=== PATIENT | male | born 1960 | race African-American/Black ===

== ENCOUNTER → 2016-07-30 | Outpatient (CLI) | payer BC ==
[2016-07-30 08:47] LABS: PROSTRATE SPECIFIC AG TOTAL 0.56 ng/mL (0.0-4.0)
[2016-07-30 08:49] LABS: FOLIC ACID (FOLATE) SERUM 19.4 ng/mL (>5.38)
[2016-07-30 08:51] LABS: BASOPHILS % 1.2 % (0.0-2.0); DIFFERENTIAL COMMENT 0; EOSINOPHILS % 14.7 % (0.0-5.0); HEMOGLOBIN. 14.2 g/dL (14.0-18.0); LYMPHOCYTES % 35.4 % (20.0-50.0); MEAN CORPUSCULAR HEMOGLOBIN 23.2 pg (28.0-32.0); MEAN CORPUSCULAR HGB CONC 31.5 g/dL (31.0-37.0); MEAN CORPUSCULAR VOLUME 73.6 fL (80.0-94.0); MEAN PLATELET VOLUME 8.9 fl (7.4-10.4); MONOCYTES % 7.6 % (2.0-8.0); NEUTROPHILS % 41.1 % (40.0-76.0); PLATELET 282 x1000/uL (130-400); RED BLOOD CELL COUNT 6.11 mill/uL (4.7-6.1); RED CELL DISTRIBUTION WIDTH 14.7 % (11.6-14.6); WHITE BLOOD COUNT 6.9 x1000/uL (4.5-11.0)
== END | disposition home or self-care (01) ==
LOC: LAB 07:35
PROVIDERS: ATTEND Internal Medicine Geriatric Medicine
DX: Z00.00 Encounter for general adult medical examination without abnormal findings (principal)
CPT/HCPCS: 36415; 82306; 82607; 82728; 82746; 83036; 83540; 83550; 84153; 84443; 85025; 86592

== ENCOUNTER → 2016-08-22 | Outpatient (CLI) | payer BC ==
[~2016-08-22] MED LIST: REGADENOSON 0.4 MG/5 ML IV ONE
== END | disposition home or self-care (01) ==
LOC: NM 08:29
PROVIDERS: ATTEND Internal Medicine Geriatric Medicine
DX: R06.09 Other forms of dyspnea (principal)
CPT/HCPCS: 78452; 93017; A9500; J2785

== ENCOUNTER → 2018-05-21 | Outpatient (CLI) | payer BC ==
[2018-05-21 07:56] LABS: BASOPHILS % 1.3 % (0.0-2.0); CLARITY URINE CLEAR (CLEAR); COLOR URINE YELLOW (YELLOW); EOSINOPHILS % 4.8 % (0.0-5.0); HEMATOCRIT. 43.6 % (42.0-52.0); HEMOGLOBIN. 13.7 g/dL (14.0-18.0); KETONES URINE TRACE (NEGATIVE); LEUKOCYTE ESTERASE URINE NEGATIVE (NEGATIVE); LYMPHOCYTES % 33.2 % (20.0-50.0); MEAN CORPUSCULAR VOLUME 73.4 fL (80.0-94.0); MEAN PLATELET VOLUME 8.2 fl (7.4-10.4); MONOCYTES % 8.8 % (2.0-8.0); NEUTROPHILS % 51.9 % (40.0-76.0); NITRITE URINE NEGATIVE (NEGATIVE); OCCULT BLOOD URINE NEGATIVE (NEGATIVE); PLATELET 395 x1000/uL (130-400); PROTEIN URINE NEGATIVE (NEGATIVE); RED BLOOD CELL COUNT 5.94 mill/uL (4.7-6.1); RED CELL DISTRIBUTION WIDTH 14.1 % (11.6-14.6); SPECIFIC GRAVITY URINE 1.027 (1.005-1.030)
[2018-05-21 08:13] LABS: CHLORIDE 107 mEq/L (98-107)
[2018-05-21 08:25] LABS: LDL CHOLESTEROL 106 mg/dL (5-100)
[2018-05-21 08:27] LABS: HDL CHOLESTEROL 30 mg/dL (40-59); TOTAL IRON BINDING CAPACITY 323 ug/dL (250-450)
[2018-05-21 08:34] LABS: FOLIC ACID (FOLATE) SERUM 10.9 ng/mL (>5.38)
[2018-05-21 12:42] LABS: PROSTRATE SPECIFIC AG TOTAL 0.85 ng/mL (0.0-4.0)
== END | disposition home or self-care (01) ==
LOC: LAB 07:22
PROVIDERS: ATTEND Internal Medicine Geriatric Medicine
DX: Z12.5 Encounter for screening for malignant neoplasm of prostate (principal); E78.5 Hyperlipidemia, unspecified; N39.0 Urinary tract infection, site not specified; R03.0 Elevated blood-pressure reading, without diagnosis of hypertension; R73.09 Other abnormal glucose
CPT/HCPCS: 36415; 80061; 82306; 82607; 82728; 82746; 83036; 83540; 83550; 84153; 84443; 86592; G0103

== ENCOUNTER 2019-09-06 08:42 | Inpatient (IN) | payer BC, OTHER ==
[~2019-09-06] VITALS: Ht 172.7 cm; Wt 90.7 kg
[2019-09-06] MEDS ORDERED: ACETAMINOPHEN 325MG TABLET PO PRN ×2 (09:15→09:45)
[2019-09-06] MEDS ORDERED: ALBUTEROL 6.7GM HFA INHALER ORI PRN (09:45)
[2019-09-06] MEDS ORDERED: ZINC SULFATE 220 MG ( 50 ) CAPSULE PO ONE (09:45)
[2019-09-06] MEDS ORDERED: MAGNESIUM/ALUMINUM HYDROXIDE/SIMETHICONE 30ML UDC PO PRN (09:45)
[2019-09-06] MEDS ORDERED: CLONIDINE 0.1MG TABLET PO PRN (09:45)
[2019-09-06] MEDS ORDERED: ONDANSETRON HCL 4MG/2ML INJ IV PRN (09:45)
[2019-09-06 10:35] LABS: BASOPHILS % 0.5 % (0.0-2.0); EOSINOPHILS % 5.2 % (0.0-5.0); HEMATOCRIT. 45.4 % (42.0-52.0); HEMOGLOBIN. 14.3 g/dL (14.0-18.0); LYMPHOCYTES % 28.9 % (20.0-50.0); MEAN CORPUSCULAR HEMOGLOBIN 23.3 pg (28.0-32.0); MEAN CORPUSCULAR VOLUME 74.1 fL (80.0-94.0); MEAN PLATELET VOLUME 8.9 fl (7.4-10.4); MONOCYTES % 10.1 % (2.0-8.0); NEUTROPHILS % 55.3 % (40.0-76.0); PLATELET 275 x1000/uL (130-400); RED BLOOD CELL COUNT 6.12 mill/uL (4.7-6.1); RED CELL DISTRIBUTION WIDTH 14.9 % (11.6-14.6)
[2019-09-06 10:38] LABS: PROTHROMBIN TIME 10.4 sec (9.6-11.0)
[2019-09-06 10:39] LABS: CHLORIDE 109 mEq/L (98-107)
[2019-09-06] MEDS ORDERED: AZITHROMYCIN 250 MG in DEXT 5% WATER 250 ML IV SCH (11:15)
[2019-09-06 12:00] VITALS: BP 147/94
[2019-09-06] MEDS ORDERED: LOSARTAN POTASSIUM 25 MG TABLET PO NR (12:31)
[2019-09-06] MEDS ORDERED: AZITHROMYCIN 500 MG in DEXT 5% WATER 250 ML IV NR (13:00)
[2019-09-06 13:08] VITALS: BP 147/94
[2019-09-06] MEDS: ASPIRIN 81MG EC TABLET PO SCH (14:07)
[2019-09-06] MEDS: THIAMINE HCL 100MG TABLET PO SCH (14:08)
[2019-09-06] MEDS: ASCORBIC ACID 500 MG TABLET PO SCH ×3 (14:08→20:15)
[2019-09-06] MEDS: ZINC SULFATE 220 MG ( 50 ) CAPSULE PO SCH (14:08)
[2019-09-06] MEDS: ENOXAPARIN 40MG/0.4ML SYR SUBCUT SCH (14:09)
[2019-09-06 16:00] VITALS: BP 133/74
[2019-09-06] MEDS ORDERED: MONTELUKAST SODIUM 10MG TABLET PO SCH (17:00)
[2019-09-06] MEDS ORDERED: BUDE6HFA INH (17:39)
[2019-09-06] MEDS ORDERED: AZITHROMYCIN 500 MG TABLET PO NR (17:41)
[2019-09-06 20:00] VITALS: BP 104/75
[2019-09-06] MEDS: GUAIFENESIN 600MG ER TABLET PO SCH ×2 (20:11→20:14)
[2019-09-06] MEDS: FAMOTIDINE 20MG TABLET PO SCH ×2 (20:11→20:15)
[2019-09-06] MEDS ORDERED: ZOLPIDEM TARTRATE 5MG TABLET PO PRN (21:00)
[2019-09-07 05:42] LABS: CHLORIDE 107 mEq/L (98-107)
[2019-09-07 05:56] LABS: CREATINE KINASE MB FRACTION < 1.0 ng/mL (0.5-3.6)
[2019-09-07 06:10] LABS: BASOPHILS % 1.1 % (0.0-2.0); EOSINOPHILS % 13.4 % (0.0-5.0); HEMATOCRIT. 44.4 % (42.0-52.0); LYMPHOCYTES % 45.6 % (20.0-50.0); MEAN CORPUSCULAR HEMOGLOBIN 23.5 pg (28.0-32.0); MEAN CORPUSCULAR VOLUME 74.2 fL (80.0-94.0); MEAN PLATELET VOLUME 8.7 fl (7.4-10.4); MONOCYTES % 8.7 % (2.0-8.0); NEUTROPHILS % 31.2 % (40.0-76.0); PLATELET 245 x1000/uL (130-400); RED BLOOD CELL COUNT 5.98 mill/uL (4.7-6.1); RED CELL DISTRIBUTION WIDTH 14.7 % (11.6-14.6)
[2019-09-07] MEDS: ENOXAPARIN 40MG/0.4ML SYR SUBCUT SCH ×2 (08:28→09:00)
[2019-09-07] MEDS: THIAMINE HCL 100MG TABLET PO SCH (08:30)
[2019-09-07] MEDS: DOCUSATE SODIUM 250MG CAPSULE PO SCH ×2 (08:30→09:00)
[2019-09-07] MEDS: ASPIRIN 81MG EC TABLET PO SCH (08:30)
[2019-09-07] MEDS: ZINC SULFATE 220 MG ( 50 ) CAPSULE PO SCH (08:30)
[2019-09-07] MEDS ORDERED: FLUTICASONE/VILANTEROL 200-25 BLST.W.DEV ORI SCH (09:00)
[2019-09-07] MEDS ORDERED: ZINC SULFATE 220 MG ( 50 ) CAPSULE PO SCH (09:00)
[2019-09-07] MEDS ORDERED: AZITHROMYCIN 250 MG TABLET PO SCH (09:00)
[2019-09-07] MEDS ORDERED: LOSARTAN POTASSIUM 25 MG TABLET PO SCH (09:00)
[2019-09-07] MEDS ORDERED: BUDE6HFA INH (09:11)
[2019-09-07] MEDS ORDERED: AZIT250T MT (09:11)
[2019-09-07] MEDS ORDERED: LOSA25TA26 MT (09:11)
[2019-09-07] MEDS ORDERED: MONT10TA21 MT (09:11)
[2019-09-07 09:31] VITALS: BP 137/89
== END 2019-09-07 10:00 | disposition home or self-care (01) | DRG 74 ==
LOC: ER 08:42 → 7WST 09:18 → ENRESERV 11:06
PROVIDERS: ADMIT Internal Medicine Geriatric Medicine; ATTEND Internal Medicine Geriatric Medicine
DX: G90.9 Disorder of the autonomic nervous system, unspecified (principal); J45.901 Unspecified asthma with (acute) exacerbation; I24.9 Acute ischemic heart disease, unspecified; E78.5 Hyperlipidemia, unspecified; I10 Essential (primary) hypertension; J01.90 Acute sinusitis, unspecified; K57.90 Diverticulosis of intestine, part unspecified, without perforation or abscess without bleeding; Z20.828 Contact with and (suspected) exposure to other viral communicable diseases; Z79.51 Long term (current) use of inhaled steroids; Z82.49 Family history of ischemic heart disease and other diseases of the circulatory system; Z88.8 Allergy status to other drugs, medicaments and biological substances; Z81.8 Family history of other mental and behavioral disorders
CPT/HCPCS: 36415; 71045; 80053; 80061; 82553; 83036; 83880; 84443; 84484; 85025; 87635; 87804; 93005; 99285; J0456; J1650; J7060

== ENCOUNTER → 2020-01-16 | Outpatient (CLI) | payer BC ==
[~2020-01-16] MED LIST changes: +AZIT250T MT; +BUDE6HFA INH; +LOSA25TA26 MT; +MONT10TA21 MT; -REGADENOSON 0.4 MG/5 ML IV ONE
[2020-01-16 07:34] LABS: BASOPHILS % 1.2 % (0.0-2.0); EOSINOPHILS % 12.4 % (0.0-5.0); HEMATOCRIT. 42.8 % (42.0-52.0); HEMOGLOBIN. 13.6 g/dL (14.0-18.0); LYMPHOCYTES % 34.7 % (20.0-50.0); MEAN CORPUSCULAR VOLUME 75.3 fL (80.0-94.0); MEAN PLATELET VOLUME 8.9 fl (7.4-10.4); NEUTROPHILS % 42.7 % (40.0-76.0); PLATELET 236 x1000/uL (130-400); RED BLOOD CELL COUNT 5.69 mill/uL (4.7-6.1); RED CELL DISTRIBUTION WIDTH 14.4 % (11.6-14.6)
[2020-01-16 07:51] LABS: CHLORIDE 109 mEq/L (98-107)
[2020-01-16 07:58] LABS: LDL CHOLESTEROL 112 mg/dL (5-100)
[2020-01-16 07:59] LABS: HDL CHOLESTEROL 40 mg/dL (40-59)
[2020-01-16 13:50] LABS: HEPATITIS B SURFACE ANTIGEN NEGATIVE
== END | disposition home or self-care (01) ==
LOC: LAB 06:33
PROVIDERS: ATTEND Internal Medicine Geriatric Medicine
DX: I10 Essential (primary) hypertension (principal)
CPT/HCPCS: 36415; 80053; 80061; 83036; 85025; 86592; 86762; 86850; 86900; 87340

== ENCOUNTER → 2021-03-18 | Outpatient (CLI) | payer BC | END | disposition home or self-care (01) | LOC: LAB 10:23 | PROVIDERS: ATTEND Internal Medicine Critical Care Medicine | DX: Z20.822 Contact with and (suspected) exposure to COVID-19 (principal) | CPT/HCPCS: C9803; U0003; U0005 ==

== ENCOUNTER 2021-04-03 09:18 | Inpatient (IN) | payer BC ==
[2021-04-03] VITALS (19 sets, daily range): BP systolic 84–147; BP diastolic 51–102
[~2021-04-03] VITALS: Ht 172.7 cm; Wt 94.8 kg
[~2021-04-03 09:18] MED LIST changes: +HEPARIN SODIUM 1,000 UNIT/1ML VIAL IV ONE; +NICARDIPINE 100MCG/ML 10ML VIAL (CATH LAB) IV ONE; +NITROGLYCERIN 50MCG/ML 10ML VIAL (CATH LAB) IV ONE
[2021-04-03 10:03] LABS: BASOPHILS % 1.2 % (0.0-2.0); EOSINOPHILS % 8.8 % (0.0-5.0); HEMATOCRIT. 45.8 % (42.0-52.0); HEMOGLOBIN. 14.4 g/dL (14.0-18.0); LYMPHOCYTES % 23.1 % (20.0-50.0); MEAN CORPUSCULAR HEMOGLOBIN 23.5 pg (28.0-32.0); MEAN CORPUSCULAR VOLUME 74.6 fL (80.0-94.0); MEAN PLATELET VOLUME 8.9 fl (7.4-10.4); MONOCYTES % 9.1 % (2.0-8.0); NEUTROPHILS % 57.8 % (40.0-76.0); PLATELET 278 x1000/uL (130-400); RED BLOOD CELL COUNT 6.14 mill/uL (4.7-6.1); RED CELL DISTRIBUTION WIDTH 14.3 % (11.6-14.6)
[2021-04-03 10:04] LABS: CHLORIDE 109 mEq/L (98-107)
[2021-04-03] MEDS ORDERED: ENOXAPARIN 80MG/0.8ML SYR SUBCUT ONE (10:30)
[2021-04-03] MEDS ORDERED: POTASSIUM CHLORIDE 10MEQ TABLET SR PO NR (10:45)
[2021-04-03] MEDS ORDERED: AMIODARONE HCL 150 MG in DEXT 5% WATER 100 ML IV NR (11:15)
[2021-04-03] MEDS ORDERED: VERAPAMIL HCL 2.5 MG/1 ML 2ML VIAL IV ONE (11:28)
[2021-04-03] MEDS ORDERED: FENTANYL CITRATE/PF 50MCG/ML 2ML VIAL ONE (11:36)
[2021-04-03] MEDS ORDERED: MIDAZOLAM HCL 2 MG/2 ML VIAL ONE (11:37)
[2021-04-03] MEDS ORDERED: ATROPINE SULFATE 1MG/10ML SYR IV PRN (12:45)
[2021-04-03] MEDS ORDERED: METOPROLOL TARTRATE 50MG TABLET PO SCH (12:45)
[2021-04-03] MEDS ORDERED: ACETAMINOPHEN 325MG TABLET PO PRN ×2 (12:45→13:00)
[2021-04-03] MEDS ORDERED: ZOLPIDEM TARTRATE 5MG TABLET PO PRN (13:00)
[2021-04-03] MEDS ORDERED: IPRATROPIUM/ALBUTEROL 0.5-3(2.5)MG/3ML NEB HHN PRN (13:30)
[2021-04-03 15:10] LABS: BG BASE EXCESS 0.1 mmol/L (-2.0-2.0); BG CARBOXYHEMOGLOBIN 0.6 % (0.5-1.5); BG DEOXYHEMOGLOBIN 2.8 % (0.0-5.0); BG FRACTION INSPIRED OXYGEN 21; BG HCO3 ACT 24.3 mmol/L (22.0-26.0); BG METHEMOGLOBIN 0.3 % (0.0-1.5); BG OXYGEN SATURATION 97.2 % (92.0-98.5); BG OXYHEMOGLOBIN 96.3 % (94.0-97.0); BG PH 7.423 (7.350-7.450); BG PO2 91.5 mmHg (75.0-100.0); BG SAMPLE SITE LEFT RADIAL; BG TOTAL HEMOGLOBIN 14.7 g/dL (12.0-18.0); BG VENT MODE ROOM AIR
[2021-04-03] MEDS: AMIODARONE HCL 900 MG in DEXT 5% WATER 482 ML IV SCH (15:13)
[2021-04-03] MEDS ORDERED: MONTELUKAST SODIUM 10MG TABLET PO SCH (17:00)
[2021-04-03] MEDS: METOPROLOL TARTRATE 50MG TABLET PO SCH (20:38)
[2021-04-03] MEDS: FLUTICASONE/VILANTEROL 200-25 BLST.W.DEV ORI SCH (20:47)
[2021-04-03 23:38] LABS: C REACTIVE PROTEIN QUANT 2.3 mg/L (0.0-3.0)
[2021-04-04] VITALS (11 sets, daily range): BP systolic 92–145; BP diastolic 48–101
[2021-04-04] MEDS: FLUTICASONE/VILANTEROL 200-25 BLST.W.DEV ORI SCH ×2 (05:29→21:00)
[2021-04-04 07:29] LABS: BASOPHILS % 1.1 % (0.0-2.0); HEMATOCRIT. 44.1 % (42.0-52.0); HEMOGLOBIN. 13.7 g/dL (14.0-18.0); LYMPHOCYTES % 34.4 % (20.0-50.0); MEAN CORPUSCULAR HEMOGLOBIN 23.2 pg (28.0-32.0); MEAN CORPUSCULAR VOLUME 74.4 fL (80.0-94.0); MEAN PLATELET VOLUME 9.6 fl (7.4-10.4); MONOCYTES % 9.3 % (2.0-8.0); NEUTROPHILS % 42.2 % (40.0-76.0); PLATELET 267 x1000/uL (130-400); RED BLOOD CELL COUNT 5.92 mill/uL (4.7-6.1); RED CELL DISTRIBUTION WIDTH 14.3 % (11.6-14.6)
[2021-04-04 08:07] LABS: CHLORIDE 108 mEq/L (98-107)
[2021-04-04] MEDS: LOSARTAN POTASSIUM 25 MG TABLET PO SCH (08:51)
[2021-04-04] MEDS: ASPIRIN 81MG EC TABLET PO SCH (08:51)
[2021-04-04] MEDS: METOPROLOL TARTRATE 50MG TABLET PO SCH (08:52)
[2021-04-04] MEDS: SPIRONOLACTONE 25MG TABLET PO SCH (08:52)
[2021-04-04] MEDS: AMIODARONE HCL 900 MG in DEXT 5% WATER 482 ML IV SCH (11:27)
[2021-04-04] MEDS: SOTALOL HCL 80MG TABLET PO SCH ×2 (12:54→21:00)
[2021-04-04] MEDS: ATORVASTATIN CALCIUM 40MG TABLET PO SCH (21:11)
[2021-04-04] MEDS: MONTELUKAST SODIUM 10MG TABLET PO SCH (21:11)
[2021-04-05] VITALS (13 sets, daily range): BP systolic 89–134; BP diastolic 56–108
[2021-04-05] MEDS: FLUTICASONE/VILANTEROL 200-25 BLST.W.DEV ORI SCH (06:55)
[2021-04-05] MEDS: ASPIRIN 81MG EC TABLET PO SCH (08:29)
[2021-04-05] MEDS: SOTALOL HCL 80MG TABLET PO SCH ×2 (08:29→21:26)
[2021-04-05] MEDS: LOSARTAN POTASSIUM 25 MG TABLET PO SCH (08:29)
[2021-04-05] MEDS: SPIRONOLACTONE 25MG TABLET PO SCH (08:29)
[2021-04-05] MEDS ORDERED: SODIUM CHLORIDE 0.9% 500 ML IV ONE (09:30)
[2021-04-05] MEDS ORDERED: SACUBITRIL/VALSARTAN 24MG/26MG TABLET PO SCH (21:00)
[2021-04-05] MEDS: MONTELUKAST SODIUM 10MG TABLET PO SCH (21:26)
[2021-04-05] MEDS: ATORVASTATIN CALCIUM 40MG TABLET PO SCH (21:26)
[2021-04-06] VITALS (11 sets, daily range): BP systolic 97–141; BP diastolic 47–90
[2021-04-06] MEDS: FLUTICASONE/VILANTEROL 200-25 BLST.W.DEV ORI SCH (06:35)
[2021-04-06 08:39] LABS: BASOPHILS % 0.9 % (0.0-2.0); EOSINOPHILS % 12.7 % (0.0-5.0); HEMATOCRIT. 43.2 % (42.0-52.0); HEMOGLOBIN. 13.8 g/dL (14.0-18.0); LYMPHOCYTES % 35.1 % (20.0-50.0); MEAN CORPUSCULAR VOLUME 75.3 fL (80.0-94.0); MEAN PLATELET VOLUME 9.5 fl (7.4-10.4); MONOCYTES % 9.1 % (2.0-8.0); NEUTROPHILS % 42.2 % (40.0-76.0); PLATELET 239 x1000/uL (130-400); RED BLOOD CELL COUNT 5.74 mill/uL (4.7-6.1); RED CELL DISTRIBUTION WIDTH 14.2 % (11.6-14.6)
[2021-04-06] MEDS: SOTALOL HCL 80MG TABLET PO SCH ×2 (08:49→22:18)
[2021-04-06] MEDS: ASPIRIN 81MG EC TABLET PO SCH (08:49)
[2021-04-06] MEDS: SPIRONOLACTONE 25MG TABLET PO SCH (08:49)
[2021-04-06 09:08] LABS: CHLORIDE 110 mEq/L (98-107)
[2021-04-06] MEDS: MONTELUKAST SODIUM 10MG TABLET PO SCH (22:18)
[2021-04-06] MEDS: ATORVASTATIN CALCIUM 40MG TABLET PO SCH (22:18)
[2021-04-07] VITALS (13 sets, daily range): BP systolic 100–144; BP diastolic 56–90
[2021-04-07] MEDS: FLUTICASONE/VILANTEROL 200-25 BLST.W.DEV ORI SCH (06:33)
[2021-04-07] MEDS: SPIRONOLACTONE 25MG TABLET PO SCH (09:38)
[2021-04-07] MEDS: ASPIRIN 81MG EC TABLET PO SCH (09:38)
[2021-04-07] MEDS: SOTALOL HCL 80MG TABLET PO SCH ×2 (09:38→21:03)
[2021-04-07] MEDS: MONTELUKAST SODIUM 10MG TABLET PO SCH (21:02)
[2021-04-07] MEDS: ATORVASTATIN CALCIUM 40MG TABLET PO SCH (21:02)
[2021-04-08 01:45] VITALS: BP 127/52
[2021-04-08 04:00] VITALS: BP 98/49
[2021-04-08 06:00] VITALS: BP 120/68
[2021-04-08 08:00] VITALS: BP 131/68
[2021-04-08] MEDS: SOTALOL HCL 80MG TABLET PO SCH (08:35)
[2021-04-08] MEDS: ASPIRIN 81MG EC TABLET PO SCH (08:35)
[2021-04-08] MEDS: SPIRONOLACTONE 25MG TABLET PO SCH (08:36)
[2021-04-08 09:30] VITALS: BP 131/68
== END 2021-04-08 10:30 | disposition home or self-care (01) | DRG 286 ==
LOC: ER 09:18 → MICUSO 11:22 → 3WST 12:43
PROVIDERS: ADMIT Internal Medicine Geriatric Medicine; ATTEND Internal Medicine Geriatric Medicine
PROC: 4A023N7 Measurement of Cardiac Sampling and Pressure, Left Heart, Percutaneous Approach (ICD-10-PCS; principal; 2021-04-03)
PROC: B211YZZ Fluoroscopy of Multiple Coronary Arteries using Other Contrast (ICD-10-PCS; 2021-04-03)
DX: I11.0 Hypertensive heart disease with heart failure (principal); I50.21 Acute systolic (congestive) heart failure; I47.1 Supraventricular tachycardia; I42.0 Dilated cardiomyopathy; E78.5 Hyperlipidemia, unspecified; I16.0 Hypertensive urgency; G90.8 Other disorders of autonomic nervous system; I25.10 Atherosclerotic heart disease of native coronary artery without angina pectoris; I49.3 Ventricular premature depolarization; I48.91 Unspecified atrial fibrillation; J42 Unspecified chronic bronchitis; R73.03 Prediabetes; Z79.51 Long term (current) use of inhaled steroids; Z86.16 Personal history of COVID-19; Z91.018 Allergy to other foods; Z79.2 Long term (current) use of antibiotics; Z79.899 Other long term (current) drug therapy
CPT/HCPCS: 36415; 36600; 71045; 80048; 80053; 80061; 82375; 82805; 83036; 83735; 83880; 84443; 84484; 85025; 85651; 86140; 93005; 93306; 93458; 99285; C1769; C1887; C1893; J0282; J1644; J1650; J2250; J3010; J3490; J7040; J7060

== ENCOUNTER → 2021-07-08 | Outpatient (CLI) | payer BC ==
[~2021-07-08] MED LIST changes: -HEPARIN SODIUM 1,000 UNIT/1ML VIAL IV ONE; -NICARDIPINE 100MCG/ML 10ML VIAL (CATH LAB) IV ONE; -NITROGLYCERIN 50MCG/ML 10ML VIAL (CATH LAB) IV ONE; +SACU1TAB PO
[2021-07-08 07:34] LABS: CHLORIDE 109 mEq/L (98-107)
== END | disposition home or self-care (01) ==
LOC: LAB 06:49
PROVIDERS: ATTEND Internal Medicine Geriatric Medicine
DX: I11.0 Hypertensive heart disease with heart failure (principal); I50.9 Heart failure, unspecified
CPT/HCPCS: 36415; 80053

== ENCOUNTER → 2021-08-02 | Outpatient (CLI) | payer BC | END | disposition home or self-care (01) | LOC: CARD 07:34 | PROVIDERS: ATTEND Internal Medicine Geriatric Medicine | DX: I08.2 Rheumatic disorders of both aortic and tricuspid valves (principal); I10 Essential (primary) hypertension; R60.0 Localized edema | CPT/HCPCS: 93306 ==

== ENCOUNTER → 2023-01-01 | Outpatient (CLI) | payer BC ==
[~2023-01-01] MED LIST changes: +MONT-46 MT; -MONT10TA21 MT
== END | disposition home or self-care (01) ==
LOC: CARD 08:39
PROVIDERS: ATTEND Internal Medicine Geriatric Medicine
DX: I35.0 Nonrheumatic aortic (valve) stenosis (principal); I48.0 Paroxysmal atrial fibrillation; I11.9 Hypertensive heart disease without heart failure
CPT/HCPCS: 93306

== ENCOUNTER → 2023-09-01 | Outpatient (CLI) | payer BC ==
[2023-09-01 09:20] LABS: DIFFERENTIAL COMMENT 0; EOSINOPHILS % 9.7 % (0.0-5.0); HEMATOCRIT. 46.4 % (42.0-52.0); HEMOGLOBIN. 14.5 g/dL (14.0-18.0); LYMPHOCYTES % 36.5 % (20.0-50.0); MEAN CORPUSCULAR HEMOGLOBIN 23.4 pg (28.0-32.0); MEAN CORPUSCULAR HGB CONC 31.2 g/dL (31.0-37.0); MEAN CORPUSCULAR VOLUME 74.8 fL (80.0-94.0); MEAN PLATELET VOLUME 8.6 fl (7.4-10.4); MONOCYTES % 8.7 % (2.0-8.0); NEUTROPHILS % 44.1 % (40.0-76.0); PLATELET 274 x1000/uL (130-400); RED CELL DISTRIBUTION WIDTH 14.8 % (11.6-14.6); WHITE BLOOD COUNT 6.8 x1000/uL (4.5-11.0)
[2023-09-01 10:06] LABS: ALANINE AMINOTRANSFERASE 12 IU/L (10-49); ALBUMIN 4.3 g/dL (3.2-4.8); ASPARTATE AMINOTRANSFERASE 12 IU/L (<34); BILIRUBIN DIRECT 0.1 mg/dL (<=3.0); BILIRUBIN TOTAL 0.4 mg/dL (0.1-1.0); CALCIUM 9.1 mg/dL (8.7-10.4); CARBON DIOXIDE 22 mEq/L (21-32); CHLORIDE 108 mEq/L (98-107); CHOLESTEROL 192 mg/dL (<200); GLUCOSE 100 mg/dL (70-105); HDL CHOLESTEROL 39 mg/dL (>55); IRON 50 ug/dL (65-175); LDL CHOLESTEROL 147 mg/dL (5-100); POTASSIUM 4.1 mEq/L (3.5-5.1); SODIUM 138 mEq/L (136-145); THYROID STIMULATING HORMONE 2.36 uIU/mL (0.55-4.78); TOTAL IRON BINDING CAPACITY 185 ug/dl (250-425); TRIGLYCERIDE 112 mg/dL (0-150); UREA NITROGEN BLOOD 14 mg/dL (9-23); URIC ACID 5.4 mg/dL (3.7-9.2)
[2023-09-01 12:00] LABS: FERRITIN 64 ng/mL (22-322); FOLIC ACID (FOLATE) SERUM 18.99 ng/mL (>5.38); HEPATITIS A AB IGM NEGATIVE (Negative); HEPATITIS B CORE AB IGM NEGATIVE (Negative); HEPATITIS B SURFACE ANTIGEN NEGATIVE (Negative); HEPATITIS C AB NON REACTIVE (Neg) (Negative); VITAMIN B12 SERUM 622 pg/mL (211-911)
== END | disposition home or self-care (01) ==
LOC: LAB 08:47
PROVIDERS: ATTEND Internal Medicine Geriatric Medicine
DX: Z00.01 Encounter for general adult medical examination with abnormal findings (principal)
CPT/HCPCS: 36415; 80053; 80061; 82248; 82306; 82607; 82728; 82746; 83540; 83550; 84443; 84550; 85025; 86592; 86705; 86709; 87340

== ENCOUNTER → 2024-01-27 | Outpatient (CLI) | payer BC ==
[2024-01-27 07:30] LABS: CARBON DIOXIDE 24 mEq/L (21-32); CHLORIDE 107 mEq/L (98-107); POTASSIUM 4.2 mEq/L (3.5-5.1); SODIUM 139 mEq/L (136-145)
[2024-01-27 07:35] LABS: CREATININE 1.1 mg/dL (0.6-1.3); GLUCOSE 109 mg/dL (70-105); IRON 111 ug/dL (65-175)
[2024-01-27 07:36] LABS: LDL CHOLESTEROL 142 mg/dL (5-100); TRIGLYCERIDE 174 mg/dL (0-150); UREA NITROGEN BLOOD 8 mg/dL (9-23)
[2024-01-27 07:37] LABS: ALANINE AMINOTRANSFERASE 18 IU/L (10-49); ASPARTATE AMINOTRANSFERASE 14 IU/L (<34); CHOLESTEROL 199 mg/dL (<200); HDL CHOLESTEROL 38 mg/dL (>55); THYROID STIMULATING HORMONE 3.53 uIU/mL (0.55-4.78)
[2024-01-27 07:37] LABS: CLARITY URINE CLEAR (CLEAR); COLOR URINE YELLOW (YELLOW); GLUCOSE URINE NEGATIVE (NEGATIVE); KETONES URINE TRACE (NEGATIVE); LEUKOCYTE ESTERASE URINE NEGATIVE (NEGATIVE); NITRITE URINE NEGATIVE (NEGATIVE); OCCULT BLOOD URINE NEGATIVE (NEGATIVE); PROTEIN URINE NEGATIVE (NEGATIVE); SPECIFIC GRAVITY URINE 1.023 (1.005-1.030); UROBILINOGEN URINE 0.2 E.U./dL (0.2-1.0)
[2024-01-27 07:38] LABS: BILIRUBIN TOTAL 0.5 mg/dL (0.1-1.0); PROTEIN TOTAL 7.3 g/dL (6.0-8.3)
[2024-01-27 07:54] LABS: TOTAL IRON BINDING CAPACITY < 40 ug/dl (250-425)
[2024-01-27 08:13] LABS: FOLIC ACID (FOLATE) SERUM 19.05 ng/mL (>5.38); VITAMIN B12 SERUM 1101 pg/mL (211-911)
== END | disposition home or self-care (01) ==
LOC: LAB 06:56
PROVIDERS: ATTEND Internal Medicine Geriatric Medicine
DX: I10 Essential (primary) hypertension (principal); E11.69 Type 2 diabetes mellitus with other specified complication; G90.8 Other disorders of autonomic nervous system
CPT/HCPCS: 36415; 80053; 80061; 81003; 82607; 82746; 83036; 83540; 83550; 84443

== ENCOUNTER → 2024-05-31 | Outpatient (CLI) | payer BC ==
[2024-05-31 08:01] LABS: CLARITY URINE CLEAR (CLEAR); COLOR URINE YELLOW (YELLOW); GLUCOSE URINE NEGATIVE (NEGATIVE); KETONES URINE NEGATIVE (NEGATIVE); LEUKOCYTE ESTERASE URINE NEGATIVE (NEGATIVE); NITRITE URINE NEGATIVE (NEGATIVE); OCCULT BLOOD URINE 1+ (NEGATIVE); PH URINE 5.5 (4.5-8.0); PROTEIN URINE TRACE (NEGATIVE); SPECIFIC GRAVITY URINE 1.031 (1.005-1.030); UROBILINOGEN URINE 0.2 E.U./dL (0.2-1.0)
[2024-05-31 08:22] LABS: CHLORIDE 107 mEq/L (98-107); POTASSIUM 4.2 mEq/L (3.5-5.1); SODIUM 140 mEq/L (136-145)
[2024-05-31 08:23] LABS: CARBON DIOXIDE 28 mEq/L (21-32)
[2024-05-31 08:24] LABS: CALCIUM 9.3 mg/dL (8.7-10.4)
[2024-05-31 08:28] LABS: CREATININE 1.1 mg/dL (0.6-1.3); GLUCOSE 111 mg/dL (70-105); IRON 104 ug/dL (65-175)
[2024-05-31 08:29] LABS: LDL CHOLESTEROL 111 mg/dL (5-100); TRIGLYCERIDE 117 mg/dL (0-150); UREA NITROGEN BLOOD 16 mg/dL (9-23)
[2024-05-31 08:30] LABS: ALANINE AMINOTRANSFERASE 16 IU/L (10-49); ALBUMIN 4.2 g/dL (3.2-4.8); ASPARTATE AMINOTRANSFERASE 13 IU/L (<34); CHOLESTEROL 172 mg/dL (<200)
[2024-05-31 08:31] LABS: BILIRUBIN TOTAL 0.5 mg/dL (0.1-1.0); HDL CHOLESTEROL 33 mg/dL (>55); PROTEIN TOTAL 7.3 g/dL (6.0-8.3)
[2024-05-31 08:32] LABS: FOLIC ACID (FOLATE) SERUM 18.38 ng/mL (>5.38); THYROID STIMULATING HORMONE 2.45 uIU/mL (0.55-4.78); VITAMIN B12 SERUM 928 pg/mL (211-911)
[2024-05-31 08:55] LABS: BACTERIA URINE FEW; SQUAMOUS EPITHELIAL CELL URINE NONE SEEN /lpf (RARE/1+); WBC URINE 0-2 /hpf (0-2); YEAST URINE NONE SEEN
== END | disposition home or self-care (01) ==
LOC: LAB 07:14
PROVIDERS: ATTEND Internal Medicine Geriatric Medicine
DX: E11.69 Type 2 diabetes mellitus with other specified complication (principal); I10 Essential (primary) hypertension
CPT/HCPCS: 36415; 80053; 80061; 81003; 82607; 82746; 83036; 83540; 84443

== ENCOUNTER → 2024-08-11 | Outpatient (CLI) | payer BC ==
[2024-08-11 08:26] LABS: BASOPHILS % 2.2 % (0.0-2.0); DIFFERENTIAL COMMENT 0; EOSINOPHILS % 14.5 % (0.0-5.0); HEMATOCRIT. 44.3 % (42.0-52.0); LYMPHOCYTES % 34.6 % (20.0-50.0); MEAN CORPUSCULAR HEMOGLOBIN 23.6 pg (28.0-32.0); MEAN CORPUSCULAR HGB CONC 31.6 g/dL (31.0-37.0); MEAN CORPUSCULAR VOLUME 74.8 fL (80.0-94.0); MEAN PLATELET VOLUME 8.6 fl (7.4-10.4); NEUTROPHILS % 39.7 % (40.0-76.0); PLATELET 244 x1000/uL (130-400); RED BLOOD CELL COUNT 5.93 mill/uL (4.7-6.1); RED CELL DISTRIBUTION WIDTH 14.5 % (11.6-14.6); WHITE BLOOD COUNT 7.1 x1000/uL (4.5-11.0)
[2024-08-12 09:12] LABS: % FREE PSA 7.1 % (.); PROSTATE SPECIFIC AG TOTAL 2.4 ng/mL (0.0-4.0); PSA FREE 0.17 ng/mL
== END | disposition home or self-care (01) ==
LOC: RAD 07:46
PROVIDERS: ATTEND Internal Medicine Geriatric Medicine
DX: Z00.01 Encounter for general adult medical examination with abnormal findings (principal)
CPT/HCPCS: 36415; 82306; 84153; 84154; 85025

== ENCOUNTER → 2024-10-24 | Outpatient (CLI) | payer BC ==
[2024-10-24 07:47] LABS: CHLORIDE 108 mEq/L (98-107); POTASSIUM 4.2 mEq/L (3.5-5.1); SODIUM 139 mEq/L (136-145)
[2024-10-24 07:48] LABS: CARBON DIOXIDE 25 mEq/L (21-32)
[2024-10-24 07:52] LABS: BASOPHILS % 1.3 % (0.0-2.0); DIFFERENTIAL COMMENT 0; EOSINOPHILS % 13.6 % (0.0-5.0); HEMATOCRIT. 44.4 % (42.0-52.0); HEMOGLOBIN. 14.1 g/dL (14.0-18.0); LYMPHOCYTES % 32.3 % (20.0-50.0); MEAN CORPUSCULAR HEMOGLOBIN 23.8 pg (28.0-32.0); MEAN CORPUSCULAR HGB CONC 31.7 g/dL (31.0-37.0); MEAN CORPUSCULAR VOLUME 75.2 fL (80.0-94.0); MEAN PLATELET VOLUME 9.3 fl (7.4-10.4); MONOCYTES % 8.6 % (2.0-8.0); NEUTROPHILS % 44.2 % (40.0-76.0); PLATELET 230 x1000/uL (130-400); RED BLOOD CELL COUNT 5.91 mill/uL (4.7-6.1); RED CELL DISTRIBUTION WIDTH 14.5 % (11.6-14.6); WHITE BLOOD COUNT 7.6 x1000/uL (4.5-11.0)
[2024-10-24 07:53] LABS: CREATININE 1.1 mg/dL (0.6-1.3); GLUCOSE 114 mg/dL (70-105)
[2024-10-24 07:54] LABS: LDL CHOLESTEROL 119 mg/dL (5-100); TRIGLYCERIDE 123 mg/dL (0-150); UREA NITROGEN BLOOD 12 mg/dL (9-23)
[2024-10-24 07:55] LABS: ALANINE AMINOTRANSFERASE 14 IU/L (10-49); ASPARTATE AMINOTRANSFERASE 11 IU/L (<34); CHOLESTEROL 173 mg/dL (<200); HDL CHOLESTEROL 40 mg/dL (>55)
[2024-10-24 07:56] LABS: BILIRUBIN TOTAL 0.3 mg/dL (0.1-1.0)
== END | disposition home or self-care (01) ==
LOC: LAB 06:50
PROVIDERS: ATTEND Internal Medicine Geriatric Medicine
DX: I11.0 Hypertensive heart disease with heart failure (principal); I50.9 Heart failure, unspecified; D72.119 Hypereosinophilic syndrome [HES], unspecified
CPT/HCPCS: 36415; 80053; 80061; 83036; 85025; 86003

== ENCOUNTER → 2025-02-08 | Outpatient (CLI) | payer BC ==
[~2025-02-08] VITALS: Ht 30.5 cm; Wt 0.5 kg
[~2025-02-08] MED LIST changes: +REGADENOSON 0.4 MG/5 ML IV ONE
== END | disposition home or self-care (01) ==
LOC: CARD 08:16
PROVIDERS: ATTEND Internal Medicine Clinical Cardiac Electrophysiology
DX: I50.21 Acute systolic (congestive) heart failure (principal); I48.0 Paroxysmal atrial fibrillation; I49.5 Sick sinus syndrome; Z95.818 Presence of other cardiac implants and grafts
CPT/HCPCS: 78452; 93017; J2785; A9500